=== PATIENT | female | born 1940 | race Caucasian/White ===

== ENCOUNTER → 2018-02-02 | Outpatient (CLI) | payer SELFPAY ==
[~2018-02-02] MED LIST: ATOR20TA65; CEPH500C24; EZET10TA3; INSU100I8; LEV112 PO; LEVO125T77; METO-233; MIRA25TA; POTA-53; SITA1TBM4
[2018-02-02 16:07] LABS: PLATELET COUNT, AUTOMATED 197 K/uL (150-450)
[2018-02-02 16:29] LABS: LDL CHOLESTEROL 23 mg/dl
== END ==
LOC: LAB 15:13
PROVIDERS: ATTEND Internal Medicine
DX: E78.5 Hyperlipidemia, unspecified (principal); E03.9 Hypothyroidism, unspecified; E11.9 Type 2 diabetes mellitus without complications; I10 Essential (primary) hypertension
CPT/HCPCS: 36415; 82040; 82043; 82247; 82310; 82374; 82435; 82465; 82565; 82947; 83036; 83718; 84075; 84132; 84155; 84295; 84439; 84443; 84450; 84460; 84478; 84520; 85025

== ENCOUNTER → 2018-05-12 | Outpatient (CLI) | payer MEDICARE, OTHER ==
[~2018-05-12] MED LIST changes: +ESTR42.59 VG; -INSU100I8; +INSU100I8 SQ; +NYST15CR32 TP
== END ==
LOC: LAB 16:05
PROVIDERS: ATTEND Internal Medicine
DX: N30.00 Acute cystitis without hematuria (principal); N89.8 Other specified noninflammatory disorders of vagina; N39.0 Urinary tract infection, site not specified; R82.79 Other abnormal findings on microbiological examination of urine
CPT/HCPCS: 81001; 87070; 87088; 87210